=== PATIENT | male | born 2000 | race Caucasian/White ===

== ENCOUNTER 2020-03-21 15:00 | Emergency (ER) | payer BC ==
[~2020-03-21] VITALS: Ht 203.2 cm; Wt 140.0 kg
[2020-03-21 15:17] VITALS: BP 146/96
== END 2020-03-21 16:30 | disposition home or self-care (01) ==
LOC: ER 15:00
DX: J02.8 Acute pharyngitis due to other specified organisms (principal); B97.89 Other viral agents as the cause of diseases classified elsewhere
CPT/HCPCS: 87081; 87880; 99283